=== PATIENT | male | born 1960 | race American Indian/Alaskan Native ===

== ENCOUNTER 2017-07-03 17:42 | Observation (INO) | payer OTHER ==
--- NOTE | 2017-07-03 17:58 | ED PDOC ---
Arrival/HPI - General Historian: Patient - History of Present Illness Time/Duration: < week (3 days) Symptom Onset: Sudden Symptom Course: Unchanged <Pernell Pressley - Last Filed: 07/03/17 18:07> <Paco Siddiqui - Last Filed: 07/03/17 20:04> - General Time Seen by Provider: 07/03/17 17:43 - History of Present Illness Narrative History of Present Illness (Text): 07/03/17 17:58 A 57 year old male, with no significant past medical history, is brought in by ambulance presents to the emergency department complaining of right ankle pain. Patient reports having "arthritis from previous injury". Patient states he takes a lot of medications but is uncertain of what they are and will be brought in by his mother. He notes 2 weeks ago, diagnosed with fracture to ankle. Patient currently wears ankle walker on left ankle and has had it on since visit to orthopedic doctor last week. 3 days ago, patient began experiencing left ankle pain and was unable to bear weight, resulting in difficulty getting out of bed. He took Tramadol, Tylenol, and Anaprox but had no relief from pain. Patient called his orthopedic doctor and was directed to visit the ER and obtain an ultrasound for possible blood clot that may be causing immobilization. No other complaints mentioned by patient at this time. No PMD (Pernell Pressley) Past Medical History - Provider Review Nursing Documentation Reviewed: Yes <Pernell Pressley - Last Filed: 07/03/17 18:07> Family/Social History - Physician Review Nursing Documentation Reviewed: Yes Family/Social History: No Known Family HX <Pernell Pressley - Last Filed: 07/03/17 18:07> Allergies/Home Meds <Pernell Pressley - Last Filed: 07/03/17 18:07> <Paco Siddiqui - Last Filed: 07/03/17 20:04> Allergies/Adverse Reactions: Allergies No Known Allergies Allergy (Unverified 06/23/13 11:18) Review of Systems - Physician Review All systems were reviewed & negative as marked: Yes - Review of Systems Constitutional: absent: Fevers Musculoskeletal: Other (left ankle pain) <Pernell Pressley - Last Filed: 07/03/17 18:07> Physical Exam Appearance: Positive for: Other (morbidly obese) - Systems Exam Head: Present: Atraumatic, Normocephalic Pupils: Present: PERRL Extroacular Muscles: Present: EOMI Conjunctiva: Present: Normal Mouth: Present: Moist Mucous Membranes Neck: Present: Normal Range of Motion Respiratory/Chest: Present: Clear to Auscultation, Good Air Exchange. No: Respiratory Distress, Accessory Muscle Use Cardiovascular: Present: Regular Rate and Rhythm, Normal S1, S2. No: Murmurs Abdomen: Present: Normal Bowel Sounds. No: Tenderness, Distention, Peritoneal Signs Back: Present: Normal Inspection Upper Extremity: Present: Normal Inspection. No: Cyanosis, Edema Lower Extremity: Present: Normal Inspection (right leg examination is normal). No: Edema Neurological: Present: GCS=15, CN II-XII Intact, Speech Normal Skin: Present: Warm, Dry, Normal Color. No: Rashes Psychiatric: Present: Alert, Oriented x 3, Normal Insight, Normal Concentration <Pernell Pressley - Last Filed: 07/03/17 18:07> Vital Signs Temp Pulse Resp BP Pulse Ox 07/03/17 17:42 98.0 F 80 16 141/88 97 Medical Decision Making <Pernell Pressley - Last Filed: 07/03/17 18:07> <Paco Siddiqui - Last Filed: 07/03/17 20:04> ED Course and Treatment: 07/03/17 18:03 Impression: 57 year old male with right ankle pain. Plan: -- Right Ankle X-Ray -- Right Foot X-Ray -- Lower Extremity Ultrasound -- Labs -- Reassess and disposition Progress Notes: (Pernell Pressley) - Lab Interpretations Lab Results: 07/03/17 18:10 07/03/17 18:10 Lab Results 07/03/17 18:10: Sodium 136, Potassium 4.2, Chloride 96 L, Carbon Dioxide 30, Anion Gap 15, BUN 16, Creatinine 1.4, Est GFR ( Amer) > 60, Est GFR (Non- Af Amer) 52, Random Glucose 99, Calcium 9.4, Total Bilirubin 0.7, AST 19, ALT 25 , Alkaline Phosphatase 89, Total Protein 8.1, Albumin 3.9, Globulin 4.2, Albumin /Globulin Ratio 0.9 L 07/03/17 18:10: PT 13.5 H, INR 1.18 H, D-Dimer, Quantitative 685 H 07/03/17 18:10: WBC 11.7 H, RBC 5.68, Hgb 13.4 L, Hct 40.5 L, MCV 71.3 L, MCH 23.6 L, MCHC 33.1, RDW 16.3 H, Plt Count 371, MPV 10.4, Gran % 79.1 H, Lymph % ( Auto) 12.9 L, [place] % (Auto) 6.8 H, Eos % (Auto) 0.9 L, Baso % (Auto) 0.3, Gran # 9.29 H, Lymph # 1.5, [place] # 0.8 H, Eos # 0.1, Baso # 0.03 - RAD Interpretation Radiology Orders: 07/03/17 17:58 ANKLE RIGHT 3 VIEWS ROUTINE [RAD] Stat FOOT RIGHT 3 VIEWS ROUTINE [RAD] Stat DUPLEX LOWER EXTRM VEIN BILAT [US] Stat - Medication Orders Current Medication Orders: Discontinued Medications Oxycodone/Acetaminophen (Percocet 5/325 Mg Tab) 1 tab PO STAT STA Stop: 07/03/17 19:58 - Scribe Statement The provider has reviewed the documentation as recorded by the Scribe <Pernell Pressley - Last Filed: 07/03/17 18:07> <Paco Siddiqui - Last Filed: 07/03/17 20:04> - Scribe Statement Jackson Delgadillo Provider Scribe Attestation: All medical record entries made by the Scribe were at my direction and personally dictated by me. I have reviewed the chart and agree that the record accurately reflects my personal performance of the history, physical exam, medical decision making, and the department course for this patient. I have also personally directed, reviewed, and agree with the discharge instructions and disposition. (Pernell Pressley) Disposition/Present on Arrival <Pernell Pressley - Last Filed: 07/03/17 18:07> - Present on Arrival Any Indicators Present on Arrival: No History of DVT/PE: No History of Uncontrolled Diabetes: No Urinary Catheter: No History of Decub. Ulcer: No - Disposition Have Diagnosis and Disposition been Completed?: Yes Disposition Time: 20:05 Patient Plan: Discharge <Paco Siddiqui - Last Filed: 07/03/17 20:04> - Disposition Diagnosis: Right ankle sprain Patient Problems: Current Active Problems Problem Status Onset Right ankle sprain Acute Condition: STABLE Additional Instructions: call your orthopedist for follow up care and home equipment such as bedside commode Prescriptions: oxyCODONE/Acetaminophen [Percocet 5/325 mg Tab] 1 ea PO TID PRN #15 tab PRN Reason: Pain, Moderate (4-7)
[2017-07-03 18:20] LABS: BASO # 0.03 K/mm3 (0.0-2.0); BASO % 0.3 % (0.0-3.0); EOS # 0.1 (0.0-0.7); EOS % 0.9 % (1.5-5.0); GRAN # 9.29 (1.4-6.5); GRAN % 79.1 % (50.0-68.0); HEMOGLOBIN 13.4 g/dL (14.0-18.0); LYMPH # 1.5 (1.2-3.4); LYMPH % 12.9 % (22.0-35.0); MEAN CELL VOLUME 71.3 fl (80.0-105.0); MEAN CORPUSCULAR HEMOGLOBIN 23.6 pg (25.0-35.0); MEAN CORPUSCULAR HGB CONC 33.1 g/dl (31.0-37.0); MEAN PLATELET VOLUME 10.4 fl (7.0-11.0); MONO # 0.8 (0.1-0.6); MONO % 6.8 % (1.0-6.0); RBC 5.68 10^6/uL (3.5-6.1); RED CELL DISTRIBUTION WIDTH 16.3 % (11.5-14.5); WHITE BLOOD COUNT 11.7 10^3/ul (4.5-11.0)
[2017-07-03 18:38] LABS: ALB/GLOB RATIO 0.9 (1.1-1.8); ALBUMIN 3.9 g/dL (3.0-4.8); ALT/SGPT 25 U/L (7-56); AST/SGOT 19 U/L (17-59); BLOOD UREA NITROGEN 16 mg/dL (7-21); CALCIUM 9.4 mg/dL (8.4-10.5); GFR AFRICAN-AMERICAN > 60; GFR NON-AFRICAN AMERICAN 52; INR 1.18 (0.93-1.08); PROTHROMBIN TIME 13.5 SECONDS (9.4-12.5)
--- NOTE | 2017-07-03 19:26 | US ---
HISTORY: Leg pain and swelling. Evaluate for DVT PHYSICIAN(S): Caio Mcrae MD. TECHNIQUE: Duplex sonography and color-flow Doppler with graded compression were used to evaluate the deep venous systems of both lower extremities. FINDINGS: The visualized deep venous systems of both lower extremities are sonographically normal and compressible. Normal wave forms and augmentation are seen. There is no sonographic evidence for deep venous thrombosis in the visualized segments of both lower extremities. IMPRESSION: No sonographic evidence for deep venous thrombosis in the visualized segments of both lower extremities.
[2017-07-03] MEDS ORDERED: Oxycodone/Acetaminophen 5/325 mg Tab PO STA (19:57)
[2017-07-04] MEDS ORDERED: Oxycodone/Acetaminophen 10/325 mg Tab PO STA (00:08)
--- NOTE | 2017-07-04 00:09 | CP.PCM.PN ---
Subjective - Date & Time of Evaluation Date of Evaluation: 07/04/17 Time of Evaluation: 00:09 - Subjective Subjective: percocet ordered for ankle pain. Objective - Vital Signs/Intake and Output Vital Signs (last 24 hours): Temp Pulse Resp BP Pulse Ox 98.0 F 88 18 140/80 99 07/03/17 17:42 07/03/17 23:06 07/03/17 23:20 07/03/17 23:06 07/03/17 23:20 - Labs Labs: PT 13.5 SECONDS (9.4-12.5) H 07/03/17 18:10 INR 1.18 (0.93-1.08) H 07/03/17 18:10
[2017-07-04 00:50] VITALS: BMI 50.2
--- NOTE | 2017-07-04 09:08 | RAD ---
PROCEDURE: Right Ankle Radiographs. HISTORY: Pain in ankle and foot for past three days, no injury COMPARISON: None FINDINGS: BONES: Bone alignment and mineralization are normal. There is no acute displaced fracture or bone destruction. There is a large plantar calcaneal spur. A well corticated ossific density inferior to the medial malleolus is most compatible with an accessory ossification center. JOINTS: There is mild degenerative osteoarthrosis in the talonavicular and calcaneocuboid joints. SOFT TISSUES: Normal. OTHER FINDINGS: None. IMPRESSION: No acute fracture or dislocation. Mild degenerative osteoarthrosis in the talonavicular and calcaneocuboid joints.
--- NOTE | 2017-07-04 09:14 | RAD ---
PROCEDURE: Right Foot Radiographs. HISTORY: pain in foot and ankle past 3 d, no injury COMPARISON: None. FINDINGS: BONES: Bone alignment and mineralization are normal. There is no acute displaced fracture or bone destruction. JOINTS: There is moderate degenerative osteoarthrosis in the 1st MTP joint with hallux valgus. SOFT TISSUES: Normal. OTHER FINDINGS: None. IMPRESSION: No acute fracture or dislocation. Moderate degenerative osteoarthrosis in the 1st MTP joint with hallux valgus.
[2017-07-04] MEDS ORDERED: Triamcinolone Acetonide 40 mg/mL Inj IAA ONE (09:31)
[2017-07-04] MEDS ORDERED: Bupivacaine 0.5% Inj(30mL) IJ ONE (09:32)
[2017-07-04] MEDS: TraMADol/Apap 37.5/325 mg Tab PO PRN ×3 (10:02→22:58)
--- NOTE | 2017-07-04 11:50 | CP.PCM.PN ---
Subjective - Date & Time of Evaluation Date of Evaluation: 07/04/17 Time of Evaluation: 11:46 - Subjective Subjective: Patient seen with Dr. Jay H&P dictated [place] [employer] EXAM[employer]ER reviewed, pt with tramadol rx from Dr. Jay 06/25/2017 which he says does not control pain. Patient was given T#3 rx from business continuity manager on one visit 06/23. Advised patient that he will be given one rx for percocet as per Dr. Jay as his pain is not controlled and he came to ER due to this pain. Patient agrees to plan, agrees not to combine with tramadol. Patient counseled on the risks of addiction, physical or psychological dependence, and overdose associated with opioid drugs and the danger of taking opioid drugs with alcohol and other central nervous system depressants, and cautioned patient on storage and disposal. Objective - Vital Signs/Intake and Output Vital Signs (last 24 hours): Temp Pulse Resp BP Pulse Ox 98.5 F 98 H 18 120/68 98 07/04/17 08:11 07/04/17 08:11 07/04/17 08:11 07/04/17 08:11 07/04/17 08:11 - Medications Medications: Current Medications Tramadol/Acetaminophen (Ultracet 37.5/325 Mg) 2 tab PO Q4H PRN PRN Reason: Pain, moderate (4-7) Last Admin: 07/04/17 10:02 Dose: 2 tab - Labs Labs: PT 13.5 SECONDS (9.4-12.5) H 07/03/17 18:10 INR 1.18 (0.93-1.08) H 07/03/17 18:10 Assessment and Plan (1) Right ankle sprain Assessment & Plan: s/p injection Status: Acute (2) Closed disp fracture of left lateral malleolus with routine healing Status: Acute
--- NOTE | 2017-07-04 12:44 | RAD ---
PROCEDURE: Left Ankle Radiographs. HISTORY: f/u lat mal fx COMPARISON: None FINDINGS: BONES: There is an obliquely oriented nondisplaced fracture of the distal fibula above the level of the ankle joint. JOINTS: Normal. No osteoarthritis. Ankle mortise maintained. Talar dome intact SOFT TISSUES: Normal. OTHER FINDINGS: None. IMPRESSION: There is an obliquely oriented nondisplaced fracture of the distal fibula above the level of the ankle joint.
--- NOTE | 2017-07-04 13:25 | CP.PCM.PN ---
Subjective - Date & Time of Evaluation Date of Evaluation: 07/04/17 Time of Evaluation: 13:24 - Subjective Subjective: Xrays of Left ankle shows non displaced lateral malleolus fx mortise intact cont CAM walker Objective - Vital Signs/Intake and Output Vital Signs (last 24 hours): Temp Pulse Resp BP Pulse Ox 98.5 F 98 H 18 120/68 98 07/04/17 08:11 07/04/17 08:11 07/04/17 08:11 07/04/17 08:11 07/04/17 08:11 - Medications Medications: Current Medications Tramadol/Acetaminophen (Ultracet 37.5/325 Mg) 2 tab PO Q4H PRN PRN Reason: Pain, moderate (4-7) Last Admin: 07/04/17 10:02 Dose: 2 tab - Labs Labs: PT 13.5 SECONDS (9.4-12.5) H 07/03/17 18:10 INR 1.18 (0.93-1.08) H 07/03/17 18:10
[2017-07-04 21:44] VITALS: RESP 20
[2017-07-05 08:33] VITALS: BP 148/84; PULSE 71; TEMP 98.5; O2SAT 95
[2017-07-05] MEDS: TraMADol/Apap 37.5/325 mg Tab PO PRN (10:10)
--- NOTE | 2017-07-07 08:37 | HP ---
ADMITTING PHYSICIAN: Marquise Jay MD ADMITTING DIAGNOSIS: Intractable right ankle pain and left ankle lateral malleolus fracture. HISTORY OF PRESENT ILLNESS: This is a 57-year-old gentleman who approximately 2 to 3 weeks' ago sustained a left ankle injury. The patient was subsequently diagnosed with a left ankle fracture. He was treated with protective weightbearing and in a Cam walker boot. He had stated that he was having inability to bear weight secondary to pain on the right side. He states that he has a history of having prior right ankle injury several years ago and the patient stated that he had not been out of bed for the last 4 days secondary to the right ankle pain. He was subsequently seen in the Emergency Room, venous Doppler was done, which was negative for deep venous thrombosis, but due to the intractable pain in the right ankle he was subsequently admitted. PAST MEDICAL HISTORY: Significant for hypertension and obesity. SOCIAL HISTORY: He is a nonsmoker. ALLERGIES: HE DENIES ANY ALLERGIES. REVIEW OF SYSTEMS: No prior history of having any heart attacks or stroke. No history of asthma or shortness of breath. No history of GI bleeding. PHYSICAL EXAMINATION: GENERAL: This is a gentleman in no apparent distress. He is awake, alert, and oriented x3. He is obese. VITAL SIGNS: Stable. He is afebrile. EXTREMITIES: Examination of the right lower extremity shows he had a soft dressing placed and this was removed. No gross deformity or swelling was appreciated. His skin is intact. He has palpable pedal pulses. He is tolerating some active range of motion without significant pain, but does have significant medial-sided tenderness about the right ankle. He is nontender over his metatarsals. He is moving all his toes without any difficulty. Evaluation of the left lower extremity shows a Cam walker boot in place. No significant swelling is appreciated. Again he does have some tenderness over the fracture site. Neurovascularly, he is intact, but palpable pedal pulses; both his thighs and calves are soft and nontender. LABORATORY DATA: X-rays of the right foot and ankle shows no acute fractures or dislocation. He does have some early degenerative changes, small ossification is noted in the medial gutter, which appears to be chronic in nature. X-rays of the left ankle are pending. IMPRESSION: 1. Right ankle pain and arthritis. 2. Acute left ankle lateral malleolus fracture. PLAN: At this point, we discussed the treatment options for the right ankle and we are going to try a steroid injection. According to the patient, he said he did have a steroid injection several years ago, which was helpful. The risks and benefits are discussed and he wants to proceed. The right ankle was prepped sterilely and approximately 40 mg of Kenalog plus 5 mL of Marcaine was injected into the right ankle joint. He tolerated the procedure well. For now, we are going to await the x-rays of the left ankle. We are going to have physical therapy evaluate him for gait training. We are going to let him weightbear as tolerated in the Cam walker in right lower extremity, and we will plan for possible discharge later today. Marquise Jay MD
== END 2017-07-05 16:50 ==
LOC: ED 17:42 → ERH 20:56 → 5RSO 23:44
PROVIDERS: ADMIT Orthopaedic Surgery; ATTEND Orthopaedic Surgery
DX: S82.65XA Nondisplaced fracture of lateral malleolus of left fibula, initial encounter for closed fracture (principal); S93.401A Sprain of unspecified ligament of right ankle, initial encounter; M19.071 Primary osteoarthritis, right ankle and foot; I10 Essential (primary) hypertension; E66.01 Morbid (severe) obesity due to excess calories; Z68.43 Body mass index [BMI] 50.0-59.9, adult; R40.2412 Glasgow coma scale score 13-15, at arrival to emergency department
CPT/HCPCS: 73610; 73630; 80053; 85025; 85378; 85610; 93970; 96372; 97162; 97530; 99285; G0378; G8978; G8979